=== PATIENT | female | born 1995 | race Caucasian/White ===

== ENCOUNTER 2016-12-26 17:10 | Inpatient (IN) | payer MEDICAID, OTHER ==
[2016-12-26] MEDS ORDERED: Sodium Chloride 0.9% 1,000 ML IV STA (17:51)
[2016-12-26 18:09] LABS: ADD MANUAL DIFF? NO
[2016-12-26 18:16] LABS: URINE BILIRUBIN SMALL (NEGATIVE); URINE BLOOD LARGE (NEGATIVE); URINE GLUCOSE (UA) NEGATIVE (NEGATIVE); URINE KETONE TRACE mg/dL (NEGATIVE); URINE LEUKOCYTE ESTERASE TRACE Leu/uL (NEGATIVE); URINE PROTEIN 100 mg/dL (<30 mg/dL); URINE UROBILINOGEN 0.2 E.U./dL (<1 E.U./dL)
--- NOTE | 2016-12-26 18:17 | ED PDOC ---
Arrival/HPI - General Chief Complaint: Abdominal Pain Time Seen by Provider: 12/26/16 17:16 Historian: Patient - History of Present Illness Narrative History of Present Illness (Text): 12/26/16 18:10 Saud Burrows is a 21 year old female who presents to the emergency department complaining of sudden onset diffuse abdominal pain associated with nausea and vomiting since 1:30 pm today afternoon. Describes pain as sharp, constant and non-radiating. Reports she had a subjective fever yesterday. Patient reports that she took an unknown medication given by her parents, but states she vomited immediately after. Informs she has not experienced pain of this quality before. Denies any chest pain, shortness of breath, diarrhea, constipation, urinary symptoms, or any other complaints. Time/Duration: Other (13:30 today ) Symptom Onset: Sudden Symptom Course: Unchanged Severity Level: Mild Activities at Onset: Light Past Medical History - Provider Review Nursing Documentation Reviewed: Yes - Infectious Disease Hx of Infectious Diseases: None - Psychiatric Hx Substance Use: No - Surgical History Other/Comment: right foot surgery - Anesthesia Hx Anesthesia: Yes Hx Anesthesia Reactions: No Hx Malignant Hyperthermia: No Family/Social History - Physician Review Nursing Documentation Reviewed: Yes Family/Social History: No Known Family HX Smoking Status: Never Smoked Hx Alcohol Use: No Hx Substance Use: No Allergies/Home Meds Allergies/Adverse Reactions: Allergies pcn Adverse Reaction (Uncoded 12/26/16 17:23) RASH Home Medications: Home Meds Medication Instructions Recorded Confirmed No Known Home Med 12/26/16 12/26/16 Review of Systems - Physician Review All systems were reviewed & negative as marked: Yes - Review of Systems Constitutional: Fevers. absent: Fatigue Respiratory: Cough (x 1 month). absent: SOB, Sputum, Wheezing Gastrointestinal: Abdominal Pain, Nausea, Vomiting. absent: Constipation, Diarrhea Genitourinary Female: Normal Neurological: Normal. absent: Headache, Dizziness Psychiatric: Normal Physical Exam Vital Signs Reviewed: Yes Vital Signs Temp Pulse Resp BP Pulse Ox 12/26/16 20:13 81 18 111/65 98 12/26/16 17:19 98.4 F 101 H 20 115/73 99 Temperature: Afebrile Blood Pressure: Normal Pulse: Tachycardic Respiratory Rate: Normal Appearance: Positive for: Well-Appearing, Non-Toxic, Comfortable Pain Distress: None Mental Status: Positive for: Alert and Oriented X 3 - Systems Exam Head: Present: Atraumatic, Normocephalic Pupils: Present: PERRL Conjunctiva: Present: Normal Respiratory/Chest: Present: Clear to Auscultation, Good Air Exchange. No: Respiratory Distress, Accessory Muscle Use Cardiovascular: Present: Regular Rate and Rhythm, Normal S1, S2. No: Murmurs Abdomen: Present: Tenderness (Diffuse abdominal pain with voluntary guarding ), Normal Bowel Sounds, Guarding. No: Distention, Peritoneal Signs, Rebound Back: Present: Normal Inspection. No: CVA Tenderness, Midline Tenderness, Paraspinal Tenderness Upper Extremity: Present: Normal Inspection. No: Cyanosis, Edema Lower Extremity: Present: Normal Inspection. No: Edema Neurological: Present: GCS=15, Speech Normal, Motor Func Grossly Intact Skin: Present: Warm, Dry, Normal Color. No: Rashes Psychiatric: Present: Alert, Oriented x 3 Medical Decision Making ED Course and Treatment: 12/26/16 18:54 Patient is nontoxic well appearing with stable vital signs presenting with severe diffuse abdominal pain. + n/v. CBC wbc;21.4 CMP wnl Amylase wnl Lipase wnl Urinalysis trace leukocytes, + blood CAT scan FINDINGS: LIMITATIONS: Mild streak/motion artifact. LOWER THORAX: Patchy areas of consolidation in the lung bases bilaterally, highly suspicious for a patchy, bi-basilar pneumonia. Followup is recommended to document clearing. ABDOMEN: LIVER: Diffuse fatty infiltration of the liver. Mild hepatomegaly. GALLBLADDER AND BILE DUCTS: No CT evidence of acute cholecystitis. No evidence of significant biliary ductal dilatation. PANCREAS: No CT evidence of acute pancreatitis. SPLEEN: No acute abnormality of the spleen identified. ADRENALS: No acute abnormality of the adrenal glands identified. KIDNEYS AND URETERS: No acute abnormality of the kidneys identified. No evidence of significant hydrouereteronephrosis. STOMACH AND BOWEL: Colon is incompletely distended, which limits evaluation for wall thickening. Otherwise, no significant abnormality of the bowel is identified. No evidence of bowel obstruction. APPENDIX: Normal appendix is not seen, however, there are no significant inflammatory changes visualized in the expected location of the appendix to suggest appendicitis. Recommend clinical correlation. PELVIS: BLADDER: Mild thickening of the bladder wall. REPRODUCTIVE: Bilateral ovarian/adnexal cystic lesions seen, the larger, on the left measuring [address] densities suggestive of simple fluid, i.e.,simple cystic lesions. No followup is warranted based on the imaging findings, unless otherwise clinically indicated. No acute abnormality of the uterus identified. ABDOMEN and PELVIS: INTRAPERITONEAL SPACE: No evidence of free intraperitoneal air or fluid. BONES/JOINTS: No acute fractures or other acute bony abnormality noted. SOFT TISSUES: No acute abnormality of the visualized soft tissues is seen. VASCULATURE: No evidence of abdominal aortic aneurysm. No evidence of periaortic hemorrhage. LYMPH NODES: No evidence of diffuse lymphadenopathy. IMPRESSION: - Finding suspicious for bibasilar infiltrates/pneumonia. Please see above for a full description. - Mild bladder wall thickening. This is a nonspecific finding, but can be seen with cystitis. Recommend clinical correlation. - Otherwise, no evidence of significant acute process. - See above for remaining findings. Patient reassessment: pt feeling better after toradol. vitals stable. blood cultures pending. levaquin started IV Discussed all results with patient in depth case discussed with resident dr. abreu. case discussed with dr. ocampo will admit patient to med/surg for pneumonia, cystitis, abdominal pain Impression: Bilateral pneumonia, cystitis, abdominal pain, leukocytosis admit to med/surg - Lab Interpretations Lab Results: 12/26/16 18:00 12/26/16 18:00 Lab Results 12/26/16 18:00: WBC 21.4 H, RBC 4.70, Hgb 12.4, Hct 36.5, MCV 77.7 L, MCH 26.4, MCHC 34.0, RDW 14.9 H, Plt Count 79 L, MPV 10.7, Gran % 83.8 H, Lymph % (Auto) 11.7 L, Bremer % (Auto) 4.3, Eos % (Auto) 0.1 L, Baso % (Auto) 0.1, Gran # 17.89 H , Lymph # 2.5, Bremer # 0.9 H, Eos # 0.0, Baso # 0.03 12/26/16 18:00: Sodium 137, Potassium 3.9, Chloride 102, Carbon Dioxide 21, Anion Gap 18, BUN 8, Creatinine 0.6, Est GFR ( Amer) > 60, Est GFR (Non- Af Amer) > 60, Random Glucose 123 H, Calcium 9.5, Total Bilirubin 0.8, AST 28, ALT 31, Alkaline Phosphatase 94, Total Protein 9.0 H, Albumin 4.6, Globulin 4.4 , Albumin/Globulin Ratio 1.0 L, Amylase 88, Lipase 24 12/26/16 18:00: Urine Color Yellow, Urine Appearance Sl cloudy, Urine pH 6.0, Ur Specific Anderson 1.025, Urine Protein 100 H, Urine Glucose (UA) Negative, Urine Ketones Trace H, Urine Blood Large H, Urine Nitrate Negative, Urine Bilirubin Small H, Urine Urobilinogen 0.2, Ur Leukocyte Esterase Trace H, Urine RBC 5 - 10, Urine WBC 0 - 2, Ur Epithelial Cells 1 - 3, Urine Bacteria Large - RAD Interpretation Radiology Orders: 12/26/16 17:55 ABD & PELVIS IV CONTRAST ONLY [CT] Stat CHEST PORTABLE [RAD] Stat - Medication Orders Current Medication Orders: Albuterol Sulfate (Albuterol 0.083% Inhal Corrina (2.5 Mg/3 Ml) Ud) 15.1 mg 0.15 mg /kg (15.1 mg) INH Q4 PRN PRN Reason: Cough and congestion Sodium Chloride (Sodium Chloride 0.9%) 1,000 mls @ 100 mls/hr IV .Q10H SHERRY Levofloxacin/Dextrose (Levaquin 750mg) 750 mg in 150 mls @ 100 mls/hr IVPB DAILY SHERRY Vancomycin HCl (Vancomycin 1gm) 1 gm in 250 mls @ 167 mls/hr IVPB STAT STA PRN Reason: Protocol Stop: 12/26/16 23:35 Aztreonam (Azactam 1 Gm) 100 mls @ 100 mls/hr IVPB STAT STA PRN Reason: Protocol Stop: 12/26/16 23:09 Pantoprazole Sodium (Protonix Inj) 40 mg IVP DAILY SHERRY Discontinued Medications Sodium Chloride (Sodium Chloride 0.9%) 1,000 mls @ 999 mls/hr IV .Q1H1M STA Stop: 12/26/16 18:51 Last Admin: 12/26/16 18:09 Dose: 999 mls/hr Iohexol (Omnipaque 350 100 Ml) Confirm Administered Dose 350 mg .ROUTE .STK-MED ONE Stop: 12/26/16 19:05 Ketorolac Tromethamine (Toradol) 30 mg IVP STAT STA Stop: 12/26/16 17:52 Last Admin: 12/26/16 18:10 Dose: 30 mg Re-Assess: MAR Pain Assessment Document 12/26/16 19:10 GMD (Rec: 12/26/16 19:34 [place] [facility] [id number] Pain Reassessment Is this a pain reassessment? No Sleep Is patient sleeping during reassessment? No Presence of Pain Presence of Pain Yes Pain Scale Used Pain Scale Used Numeric Description Intensity of Pain at present 1 Levofloxacin/Dextrose (Levaquin 750mg) 750 mg IVPB STAT STA Stop: 12/26/16 20:31 Last Admin: 12/26/16 20:50 Dose: 750 mg Ondansetron HCl (Zofran Inj) 4 mg IVP STAT STA Stop: 12/26/16 17:56 Last Admin: 12/26/16 18:11 Dose: 4 mg Disposition/Present on Arrival - Present on Arrival Any Indicators Present on Arrival: No History of DVT/PE: No History of Uncontrolled Diabetes: No Urinary Catheter: No History of Decub. Ulcer: No History Surgical Site Infection Following: None - Disposition Have Diagnosis and Disposition been Completed?: Yes Diagnosis: Pneumonia, Leukocytosis, Abdominal pain Disposition: HOSPITALIZED Disposition Time: 20:55 Patient Plan: Admission Patient Problems: Current Active Problems Problem Status Onset Abdominal pain Acute Leukocytosis Acute Pneumonia Acute Condition: FAIR
[2016-12-26 18:18] LABS: BASO # 0.03 K/mm3 (0.0-2.0); BASO % 0.1 % (0.0-3.0); EOS % 0.1 % (1.5-5.0); GRAN # 17.89 (1.4-6.5); GRAN % 83.8 % (50.0-68.0); HEMATOCRIT 36.5 % (36.0-48.0); LYMPH # 2.5 (1.2-3.4); LYMPH % 11.7 % (22.0-35.0); MEAN CELL VOLUME 77.7 fL (80.0-105.0); MEAN CORPUSCULAR HEMOGLOBIN 26.4 pg (25.0-35.0); MEAN PLATELET VOLUME 10.7 fl (7.0-11.0); MONO # 0.9 (0.1-0.6); MONO % 4.3 % (1.0-6.0); PLATELET COUNT 79 10^3/uL (120.0-450.0); RED CELL DISTRIBUTION WIDTH 14.9 % (11.5-14.5); WHITE BLOOD COUNT 21.4 10^3/ul (4.5-11.0)
[2016-12-26 18:19] LABS: URINE APPEARANCE SL CLOUDY (CLEAR); URINE COLOR YELLOW (YELLOW)
[2016-12-26 18:33] LABS: ALKALINE PHOSPHATASE 94 U/L (38-133); ALT/SGPT 31 U/L (7-56); AMYLASE 88 U/L (35-125); AST/SGOT 28 U/L (15-39); BILIRUBIN,TOTAL 0.8 mg/dL (0.2-1.3); BLOOD UREA NITROGEN 8 mg/dL (7-21); CALCIUM 9.5 mg/dL (8.4-10.5); CARBON DIOXIDE 21 mmol/L (21-33); CHLORIDE 102 mmol/L (98-107); GFR AFRICAN-AMERICAN > 60; GLUCOSE,RANDOM 123 mg/dL (70-110); LIPASE 24 U/L (23-300); POTASSIUM 3.9 mmol/L (3.6-5.0); SODIUM 137 mmol/L (132-148)
[2016-12-26] MEDS ORDERED: Iohexol 350 MG/100 ML VIAL ONE (19:04)
[2016-12-26 19:28] LABS: URINE BACTERIA LARGE (NEG); URINE WBC 0 - 2 /hpf (0-6)
--- NOTE | 2016-12-26 20:12 | CT ---
EXAM: CT Abdomen and Pelvis With Intravenous Contrast CLINICAL HISTORY: 21 years old, female; Pain; Abdominal pain; Generalized; Additional info: Abd pain TECHNIQUE: Axial computed tomography images of the abdomen and pelvis with intravenous contrast. This CT exam was performed using one or more of the following dose reduction techniques: automated exposure control, adjustment of the mA and/or kV according to patient size, and/or use of iterative reconstruction technique. Coronal and sagittal reformatted images were created and reviewed. CONTRAST: 96 mL of [id number] administered intravenously. EXAM DATE/TIME: 12/26/2016 5:55 PM COMPARISON: No relevant prior studies available. FINDINGS: LIMITATIONS: Mild streak/motion artifact. LOWER THORAX: Patchy areas of consolidation in the lung bases bilaterally, highly suspicious for a patchy, bi-basilar pneumonia. Followup is recommended to document clearing. ABDOMEN: LIVER: Diffuse fatty infiltration of the liver. Mild hepatomegaly. GALLBLADDER AND BILE DUCTS: No CT evidence of acute cholecystitis. No evidence of significant biliary ductal dilatation. PANCREAS: No CT evidence of acute pancreatitis. SPLEEN: No acute abnormality of the spleen identified. ADRENALS: No acute abnormality of the adrenal glands identified. KIDNEYS AND URETERS: No acute abnormality of the kidneys identified. No evidence of significant hydrouereteronephrosis. STOMACH AND BOWEL: Colon is incompletely distended, which limits evaluation for wall thickening. Otherwise, no significant abnormality of the bowel is identified. No evidence of bowel obstruction. APPENDIX: Normal appendix is not seen, however, there are no significant inflammatory changes visualized in the expected location of the appendix to suggest appendicitis. Recommend clinical correlation. PELVIS: BLADDER: Mild thickening of the bladder wall. REPRODUCTIVE: Bilateral ovarian/adnexal cystic lesions seen, the larger, on the left measuring [address] densities suggestive of simple fluid, i.e.,simple cystic lesions. No followup is warranted based on the imaging findings, unless otherwise clinically indicated. No acute abnormality of the uterus identified. ABDOMEN and PELVIS: INTRAPERITONEAL SPACE: No evidence of free intraperitoneal air or fluid. BONES/JOINTS: No acute fractures or other acute bony abnormality noted. SOFT TISSUES: No acute abnormality of the visualized soft tissues is seen. VASCULATURE: No evidence of abdominal aortic aneurysm. No evidence of periaortic hemorrhage. LYMPH NODES: No evidence of diffuse lymphadenopathy. IMPRESSION: - Finding suspicious for bibasilar infiltrates/pneumonia. Please see above for a full description. - Mild bladder wall thickening. This is a nonspecific finding, but can be seen with cystitis. Recommend clinical correlation. - Otherwise, no evidence of significant acute process. - See above for remaining findings.
[2016-12-26] MEDS ORDERED: levoFLOXacin 750 mg in D5W 150 ML BAG IVPB STA (20:30)
[2016-12-26] MEDS ORDERED: Sodium Chloride 0.9% 1,000 ML IV SCH (22:00)
[2016-12-26] MEDS ORDERED: Vancomycin 1gm in NS 250ml 1 GM/250 ML BAG IVPB STA (22:06)
[2016-12-26] MEDS ORDERED: Aztreonam 1 Gm in NS 100mL 100 ML IVPB STA (22:10)
[2016-12-26] MEDS ORDERED: Albuterol 0.083% Inhal Sol (2.5 mg/3 mL) UD INH PRN (22:11)
[2016-12-27 01:02] VITALS: RESP 20; BMI 32.5
--- NOTE | 2016-12-27 02:28 | CP.PCM.HP ---
History of Present Illness - History of Present Illness History of Present Illness: CC: Abdominal Pain/one week cough and congestion HPI: Ms. Burrows is a 21 year old female who presented with sudden onset diffuse abdominal pain associated with nausea and vomiting since 1330 this afternoon. She describes the pain as sharp, constant and non-radiating. She reports she had a subjective fever yesterday. She states that she has had 3 episodes of NBNB vomiting since yesterday. She also reports one week of a cough productive of yellow phlegm and general chest congestion that she believed to be the flu and unrelated to her chief complaint. A CT abd/pelv in the ED showed bibasilar infiltrates/pneumonia bilaterally as well as mild bladder wall thickening. She denies any headache, dizziness, chest pain, shortness of breath , diarrhea, constipation, any urinary symptoms, or any other complaints at this time. PMH: None PSH: None Family History: Non-contributory Social History: Denies tobacco, alcohol or illicit drug use Allergies: Penicillin Home Meds: None Present on Admission - Present on Admission Any Indicators Present on Admission: No Review of Systems - Review of Systems Review of Systems: Please refer to HPI Past Patient History - Infectious Disease Hx of Infectious Diseases: None - Past Social History Smoking Status: Never Smoked - CARDIAC Hx Cardiac Disorders: No Hx Angina: No Hx Cardia Arrhythmia: No Hx Circulatory Problems: No Hx Congestive Heart Failure: No Hx Heart Murmur: No Hx Heart Transplant: No Hx Hypercholesterolemia: No Hx Hypertension: No Hx Internal Defibrillator: No Hx Mitral Valve Prolapse: No Hx Pacemaker: No Hx Peripheral Edema: No Hx Peripheral Vascular Disease: No - PULMONARY Hx Respiratory Disorders: No Hx Asthma: No Hx Bronchitis: No Hx Chronic Obstructive Pulmonary Disease (COPD): No Hx Emphysema: No Hx Pneumonia: No Hx Respiratory Aspiration: No Hx Respiratory Tract Infection: No Hx Sleep Apnea: No Hx Tuberculosis: No - NEUROLOGICAL Hx Neurological Disorder: No Hx Alzheimer's Disease: No HX Cerebrovascular Accident: No Hx Dementia: No Hx Dizziness: No Hx Meningitis: No Hx Migraine: No Hx Parkinson's Disease: No Hx Seizures: No Hx Transient Ischemic Attacks (TIA): No - HEENT Hx HEENT Problems: No Hx Blind: No Hx Cataracts: No Hx Deafness: No Hx Difficulty Chewing: No Hx Epistaxis: No Hx Glaucoma: No Hx Macular Degeneration: No - RENAL Hx Chronic Kidney Disease: No Hx Dialysis: No Hx Kidney Stones: No Hx Neurogenic Bladder: No Hx Pyelonephritis: No Hx Renal (Kidney) Cancer: No Hx Renal Failure: No - ENDOCRINE/METABOLIC Hx Endocrine Disorders: No Hx Adrenal Cancer: No Hx Diabetes Insipidus: No Hx Diabetes Mellitus Type 1: No Hx Diabetes Mellitus Type 2: No Hx Hyperthyroidism: No Hx Hypothyroidism: No Hx Systemic Lupus Erythematosus: No - HEMATOLOGICAL/ONCOLOGICAL Hx Blood Disorders: No Hx AIDS: No Hx Cancer: No Hx Chemotherapy: No Hx Cirrhosis: No Hx Hemophilia: No Hx Hepatitis A: No Hx Hepatitis B: No Hx Hepatitis C: No Hx Human Immunodeficiency Virus (HIV): No Hx Metastesis: No Hx Shingles: No Hx Sickle Cell Disease: No Hx Unexplained Bleeding: No - INTEGUMENTARY Hx Dermatological Problems: No Hx Basil Cell: No Hx Eczema: No Hx Melanoma: No Hx Psoriasis: No Hx Squamous Cell: No - MUSCULOSKELETAL/RHEUMATOLOGICAL Hx Falls: No - GENITOURINARY/GYNECOLOGICAL Hx Genitourinary Disorders: No Hx Hematuria: No Hx Incontinence: No Hx Sexually Transmitted Disorders: No Hx Urinary Tract Infection: No - PSYCHIATRIC Hx Substance Use: No - SURGICAL HISTORY Hx Cardiac Catheterization: No Hx Coronary Stent: No - ANESTHESIA Hx Anesthesia: Yes Hx Anesthesia Reactions: No Hx Malignant Hyperthermia: No Meds Allergies/Adverse Reactions: Allergies Allergy/AdvReac Type Severity Reaction Status Date / Time pcn AdvReac RASH Uncoded 12/26/16 17:23 Physical Exam - Constitutional Appears: No Acute Distress - Head Exam Head Exam: NORMAL INSPECTION, NORMOCEPHALIC - Eye Exam Eye Exam: EOMI, Normal appearance - ENT Exam ENT Exam: Mucous Membranes Moist, Normal Exam - Neck Exam Neck exam: Positive for: Full Rom. Negative for: Lymphadenopathy - Respiratory Exam Respiratory Exam: Clear to Auscultation Bilateral, NORMAL BREATHING PATTERN. absent: Rales, Rhonchi, Wheezes, Respiratory Distress, Stridor - Cardiovascular Exam Cardiovascular Exam: REGULAR RHYTHM, RRR, +S1, +S2. absent: Bradycardia, Tachycardia, Diastolic murmur, Systolic Murmur - GI/Abdominal Exam GI & Abdominal Exam: Normal Bowel Sounds. absent: Distended, Firm, Tenderness - Extremities Exam Extremities exam: Positive for: normal capillary refill, pedal pulses present. Negative for: calf tenderness, pedal edema - Neurological Exam Neurological exam: Alert, Normal Gait, Oriented x3 - Psychiatric Exam Psychiatric exam: Normal Affect, Normal Mood - Skin Skin Exam: Dry, Intact, Normal Color, Warm Results - Vital Signs Recent Vital Signs: Last Vital Signs Temp 98.5 F 12/26/16 23:56 Pulse 78 12/26/16 23:56 Resp 20 12/27/16 00:25 BP 115/68 12/26/16 23:56 Pulse Ox 99 12/26/16 23:56 - Labs Result Diagrams: 12/26/16 18:00 12/26/16 18:00 Assessment & Plan - Assessment and Plan (Free Text) Assessment: Ms. Burrows is a 21 year old female who presented with sudden onset diffuse abdominal pain associated with nausea and vomiting. Pneumonia found on CT abd/ pelvis in ED. Plan: 1. Diffuse Abdominal Pain -CT abd/pelv showed no acute GI process -patient currently asymptomatic -zofran PRN -toradol/tylenol for pain control -will cont to monitor 2. Bilateral Bibasilar Pneumonia/ CAP -CURB-65 score: 0 -see CT abd/pelv report -CXR report pending -started on levaquin empirically; given one dose of vanc and aztreonam -IVF: NS at 100mls/hr -duonebs PRN -WBC: 21.4 on admission, afebrile throughout, normotensive, non-tachy -blood cultures pending 3. GI/DVT Prophylaxis -protonix/scd's Patient seen and case discussed with attending, Dr. Yun. - Date & Time Date: 12/27/16 Time: 02:29
[2016-12-27 07:33] LABS: ADD MANUAL DIFF? NO
[2016-12-27 07:38] LABS: BASO # 0.03 K/mm3 (0.0-2.0); BASO % 0.2 % (0.0-3.0); EOS # 0.2 (0.0-0.7); EOS % 1.2 % (1.5-5.0); GRAN # 10.48 (1.4-6.5); GRAN % 70.1 % (50.0-68.0); HEMATOCRIT 34.9 % (36.0-48.0); LYMPH # 3.4 (1.2-3.4); LYMPH % 22.9 % (22.0-35.0); MEAN CELL VOLUME 77.2 fL (80.0-105.0); MEAN CORPUSCULAR HEMOGLOBIN 25.2 pg (25.0-35.0); MEAN CORPUSCULAR HGB CONC 32.7 g/dl (31.0-37.0); MONO # 0.8 (0.1-0.6); MONO % 5.6 % (1.0-6.0); RED CELL DISTRIBUTION WIDTH 15.1 % (11.5-14.5)
[2016-12-27 07:47] LABS: ALKALINE PHOSPHATASE 82 U/L (38-133); ALT/SGPT 22 U/L (7-56); AST/SGOT 28 U/L (15-39); BILIRUBIN,TOTAL 0.7 mg/dL (0.2-1.3); BLOOD UREA NITROGEN 9 mg/dL (7-21); CALCIUM 8.9 mg/dL (8.4-10.5); CARBON DIOXIDE 25 mmol/L (21-33); CHLORIDE 107 mmol/L (95-110); GFR AFRICAN-AMERICAN > 60; GLUCOSE,RANDOM 84 mg/dL (70-110); SODIUM 141 mmol/L (132-148); TOTAL PROTEIN 7.8 g/dL (5.8-8.3)
--- NOTE | 2016-12-27 09:29 | RAD ---
HISTORY: Abdominal pain. COMPARISON: No prior. FINDINGS: LUNGS: No active pulmonary disease. PLEURA: No significant pleural effusion identified, no pneumothorax apparent. CARDIOVASCULAR: Normal. OSSEOUS STRUCTURES: No significant abnormalities. VISUALIZED UPPER ABDOMEN: Normal. OTHER FINDINGS: None. IMPRESSION: No active disease.
[2016-12-27] MEDS: levoFLOXacin 750 mg in D5W 750 MG/150 ML BAG IVPB SCH (09:34)
[2016-12-27 10:31] LABS: PLATELET COUNT 241 10^3/uL (120.0-450.0)
[2016-12-28 07:03] VITALS: BP 114/73; O2SAT 98
[2016-12-28 08:05] LABS: ALKALINE PHOSPHATASE 76 U/L (38-133); ALT/SGPT 20 U/L (7-56); AST/SGOT 25 U/L (15-39); BILIRUBIN,TOTAL 0.4 mg/dL (0.2-1.3); BLOOD UREA NITROGEN 9 mg/dL (7-21); CALCIUM 8.6 mg/dL (8.4-10.5); CARBON DIOXIDE 23 mmol/L (21-33); CHLORIDE 107 mmol/L (95-110); GFR AFRICAN-AMERICAN > 60; GLUCOSE,RANDOM 93 mg/dL (70-110); POTASSIUM 4.3 mmol/L (3.6-5.0); SODIUM 142 mmol/L (132-148); TOTAL PROTEIN 7.2 g/dL (5.8-8.3)
[2016-12-28 08:12] VITALS: PULSE 78; TEMP 98
[2016-12-28 09:25] LABS: ADD MANUAL DIFF? NO
[2016-12-28 09:27] LABS: BASO # 0.05 K/mm3 (0.0-2.0); BASO % 0.5 % (0.0-3.0); EOS # 0.4 (0.0-0.7); EOS % 3.5 % (1.5-5.0); GRAN # 5.22 (1.4-6.5); GRAN % 52.7 % (50.0-68.0); HEMATOCRIT 32.7 % (36.0-48.0); LYMPH # 3.7 (1.2-3.4); LYMPH % 37.5 % (22.0-35.0); MEAN CELL VOLUME 80.5 fL (80.0-105.0); MEAN CORPUSCULAR HEMOGLOBIN 26.4 pg (25.0-35.0); MEAN CORPUSCULAR HGB CONC 32.7 g/dl (31.0-37.0); MEAN PLATELET VOLUME 11.1 fl (7.0-11.0); MONO # 0.6 (0.1-0.6); MONO % 5.8 % (1.0-6.0); RED CELL DISTRIBUTION WIDTH 14.9 % (11.5-14.5); WHITE BLOOD COUNT 9.9 10^3/ul (4.5-11.0)
[2016-12-28 09:45] LABS: PLATELET COUNT 253 10^3/uL (120.0-450.0)
[2016-12-28] MEDS: levoFLOXacin 750 mg in D5W 750 MG/150 ML BAG IVPB SCH (09:51)
--- NOTE | 2016-12-28 16:21 | CP.PCM.DIS ---
<Rosenda Ramirez - Last Filed: 12/28/16 16:32> Provider - Provider Date of Admission: 12/26/16 20:55 Attending physician: Jose Thompson MD Primary care physician: Jami Rawls MD Time Spent in preparation of Discharge (in minutes): 45 Diagnosis - Discharge Diagnosis (1) Abdominal pain Status: Acute (2) Leukocytosis Status: Acute (3) Pneumonia Status: Acute Hospital Course - Lab Results Lab Results: Most Recent Lab Values WBC 9.9 10^3/ul (4.5-11.0) D 12/28/16 09:00 RBC 4.06 10^6/uL (3.5-6.1) 12/28/16 09:00 Hgb 10.7 gm/dL (12.0-16.0) L 12/28/16 09:00 Hct 32.7 % (36.0-48.0) L 12/28/16 09:00 MCV 80.5 fL (80.0-105.0) 12/28/16 09:00 MCH 26.4 pg (25.0-35.0) 12/28/16 09:00 MCHC 32.7 g/dl (31.0-37.0) 12/28/16 09:00 RDW 14.9 % (11.5-14.5) H 12/28/16 09:00 Plt Count 253 10^3/uL (120.0-450.0) 12/28/16 09:00 MPV 11.1 fl (7.0-11.0) H 12/28/16 09:00 Gran % 52.7 % (50.0-68.0) 12/28/16 09:00 Lymph % (Auto) 37.5 % (22.0-35.0) H 12/28/16 09:00 [place] % (Auto) 5.8 % (1.0-6.0) 12/28/16 09:00 Eos % (Auto) 3.5 % (1.5-5.0) 12/28/16 09:00 Baso % (Auto) 0.5 % (0.0-3.0) 12/28/16 09:00 Gran # 5.22 (1.4-6.5) 12/28/16 09:00 Lymph # 3.7 (1.2-3.4) H 12/28/16 09:00 [place] # 0.6 (0.1-0.6) 12/28/16 09:00 Eos # 0.4 (0.0-0.7) 12/28/16 09:00 Baso # 0.05 K/mm3 (0.0-2.0) 12/28/16 09:00 Sodium 142 mmol/L (132-148) 12/28/16 07:10 Potassium 4.3 mmol/L (3.6-5.0) 12/28/16 07:10 Chloride 107 mmol/L (95-110) 12/28/16 07:10 Carbon Dioxide 23 mmol/L (21-33) 12/28/16 07:10 Anion Gap 16 (10-20) 12/28/16 07:10 BUN 9 mg/dL (7-21) 12/28/16 07:10 Creatinine 0.5 mg/dL (0.5-1.4) 12/28/16 07:10 Est GFR ( Amer) > 60 12/28/16 07:10 Est GFR (Non-Af Amer) > 60 12/28/16 07:10 POC Glucose (mg/dL) 115 mg/dL (65-110) H 12/28/16 11:29 Random Glucose 93 mg/dL (70-110) 12/28/16 07:10 Calcium 8.6 mg/dL (8.4-10.5) 12/28/16 07:10 Total Bilirubin 0.4 mg/dL (0.2-1.3) 12/28/16 07:10 AST 25 U/L (15-39) 12/28/16 07:10 ALT 20 U/L (7-56) 12/28/16 07:10 Alkaline Phosphatase 76 U/L (38-133) 12/28/16 07:10 Total Protein 7.2 g/dL (5.8-8.3) 12/28/16 07:10 Albumin 3.7 g/dL (3.0-4.8) 12/28/16 07:10 Globulin 3.5 gm/dL 12/28/16 07:10 Albumin/Globulin Ratio 1.0 (1.1-1.8) L 12/28/16 07:10 Amylase 88 U/L (35-125) 12/26/16 18:00 Lipase 24 U/L (23-300) 12/26/16 18:00 Urine Color Yellow (YELLOW) 12/26/16 18:00 Urine Appearance Sl cloudy (CLEAR) 12/26/16 18:00 Urine pH 6.0 (4.7-8.0) 12/26/16 18:00 Ur Specific [place] 1.025 (1.005-1.035) 12/26/16 18:00 Urine Protein 100 mg/dL (<30 mg/dL) H 12/26/16 18:00 Urine Glucose (UA) Negative mg/dL (NEGATIVE) 12/26/16 18:00 Urine Ketones Trace mg/dL (NEGATIVE) H 12/26/16 18:00 Urine Blood Large (NEGATIVE) H 12/26/16 18:00 Urine Nitrate Negative (NEGATIVE) 12/26/16 18:00 Urine Bilirubin Small (NEGATIVE) H 12/26/16 18:00 Urine Urobilinogen 0.2 E.U./dL (<1 E.U./dL) 12/26/16 18:00 Ur Leukocyte Esterase Trace Rosie/uL (NEGATIVE) H 12/26/16 18:00 Urine RBC 5 - 10 /hpf (0-2) 12/26/16 18:00 Urine WBC 0 - 2 /hpf (0-6) 12/26/16 18:00 Ur Epithelial Cells 1 - 3 /hpf (0-5) 12/26/16 18:00 Urine Bacteria Large (NEG) 12/26/16 18:00 - Hospital Course Hospital Course: 21 year old female with no significant pmhx presented with sudden onset diffuse abdominal pain associated with nausea and vomiting since 1330 this afternoon. She describes the pain as sharp, constant and non-radiating. She reports she had a subjective fever yesterday. She states that she has had 3 episodes of NBNB vomiting since yesterday. She also reports one week of a cough productive of yellow phlegm and general chest congestion that she believed to be the flu and unrelated to her chief complaint. A CT abd/pelv in the ED showed bibasilar infiltrates/pneumonia bilaterally as well as mild bladder wall thickening. Patient was admitted for community acquired pneumonia. Patient was started on Levaquin. Blood work on admission showed leukocytosis at 21.4 and thrombocytopenia with platelet count of 79. On subsequent CBCs, platelets were WNL and Leukocytosis resolved. Diet was slowly advanced as tolerated. Blood cx and Urine cx was negative during this admission. On day of discharge, patient was doing well, tolerating diet, and had no complaints. Patient was medically stable prior to discharge. Patient was given prescription for Levaquin PO x 7 days and instructed to follow up with PMD within 1 week. Patient was extensively counseled on the importance of avoiding aggressive exercise while on levaquin and up to 1 week after completion of antibiotic course. Patient verbalized understanding, all questions and concerns were addressed. Discharge Exam - Head Exam Head Exam: NORMAL INSPECTION, NORMOCEPHALIC - Eye Exam Eye Exam: EOMI, Normal appearance Pupil Exam: NORMAL ACCOMODATION - ENT Exam ENT Exam: Mucous Membranes Moist - Neck Exam Neck exam: Full Rom - Respiratory Exam Respiratory Exam: Clear to PA & Lateral, NORMAL BREATHING PATTERN. absent: Rales, Rhonchi, Wheezes - Cardiovascular Exam Cardiovascular Exam: REGULAR RHYTHM, +S1, +S2 - GI/Abdominal Exam GI & Abdominal Exam: Normal Bowel Sounds, Soft. absent: Guarding, Rebound, Tenderness - Extremities Exam Extremities exam: normal capillary refill, pedal pulses present - Back Exam Back exam: NORMAL INSPECTION - Neurological Exam Neurological exam: Alert, Oriented x3 - Psychiatric Exam Psychiatric exam: Normal Affect, Normal Mood - Skin Skin Exam: Dry, Normal Color, Warm Discharge Plan - Discharge Medications Prescriptions: Levofloxacin [Levaquin] 500 mg PO DAILY #7 tablet - Follow Up Plan Condition: FAIR Disposition: HOME/ ROUTINE Instructions: Cigarette Smoking and Your Health (GEN), Acute Abdominal Pain (DC ), Acute Abdominal Pain (GEN), Leukocytosis (DC), Leukocytosis (GEN), Pneumonia (DC) Additional Instructions: Patient is clear for discharge home, Continue PO levaquin 500mg daily for 7 days , patient to follow up with PCP in 1 week. Can return to work on tuesday Referrals: Jami Rawls MD [Primary Care Provider] - <Jose Thompson - Last Filed: 12/28/16 18:05> Provider - Provider Date of Admission: 12/26/16 20:55 Attending physician: Jose Thompson MD Primary care physician: Jami Rawsl MD Hospital Course - Lab Results Lab Results: Most Recent Lab Values WBC 9.9 10^3/ul (4.5-11.0) D 12/28/16 09:00 RBC 4.06 10^6/uL (3.5-6.1) 12/28/16 09:00 Hgb 10.7 gm/dL (12.0-16.0) L 12/28/16 09:00 Hct 32.7 % (36.0-48.0) L 12/28/16 09:00 MCV 80.5 fL (80.0-105.0) 12/28/16 09:00 MCH 26.4 pg (25.0-35.0) 12/28/16 09:00 MCHC 32.7 g/dl (31.0-37.0) 12/28/16 09:00 RDW 14.9 % (11.5-14.5) H 12/28/16 09:00 Plt Count 253 10^3/uL (120.0-450.0) 12/28/16 09:00 MPV 11.1 fl (7.0-11.0) H 12/28/16 09:00 Gran % 52.7 % (50.0-68.0) 12/28/16 09:00 Lymph % (Auto) 37.5 % (22.0-35.0) H 12/28/16 09:00 [place] % (Auto) 5.8 % (1.0-6.0) 12/28/16 09:00 Eos % (Auto) 3.5 % (1.5-5.0) 12/28/16 09:00 Baso % (Auto) 0.5 % (0.0-3.0) 12/28/16 09:00 Gran # 5.22 (1.4-6.5) 12/28/16 09:00 Lymph # 3.7 (1.2-3.4) H 12/28/16 09:00 [place] # 0.6 (0.1-0.6) 12/28/16 09:00 Eos # 0.4 (0.0-0.7) 12/28/16 09:00 Baso # 0.05 K/mm3 (0.0-2.0) 12/28/16 09:00 Sodium 142 mmol/L (132-148) 12/28/16 07:10 Potassium 4.3 mmol/L (3.6-5.0) 12/28/16 07:10 Chloride 107 mmol/L (95-110) 12/28/16 07:10 Carbon Dioxide 23 mmol/L (21-33) 12/28/16 07:10 Anion Gap 16 (10-20) 12/28/16 07:10 BUN 9 mg/dL (7-21) 12/28/16 07:10 Creatinine 0.5 mg/dL (0.5-1.4) 12/28/16 07:10 Est GFR ( Amer) > 60 12/28/16 07:10 Est GFR (Non-Af Amer) > 60 12/28/16 07:10 POC Glucose (mg/dL) 115 mg/dL (65-110) H 12/28/16 11:29 Random Glucose 93 mg/dL (70-110) 12/28/16 07:10 Calcium 8.6 mg/dL (8.4-10.5) 12/28/16 07:10 Total Bilirubin 0.4 mg/dL (0.2-1.3) 12/28/16 07:10 AST 25 U/L (15-39) 12/28/16 07:10 ALT 20 U/L (7-56) 12/28/16 07:10 Alkaline Phosphatase 76 U/L (38-133) 12/28/16 07:10 Total Protein 7.2 g/dL (5.8-8.3) 12/28/16 07:10 Albumin 3.7 g/dL (3.0-4.8) 12/28/16 07:10 Globulin 3.5 gm/dL 12/28/16 07:10 Albumin/Globulin Ratio 1.0 (1.1-1.8) L 12/28/16 07:10 Amylase 88 U/L (35-125) 12/26/16 18:00 Lipase 24 U/L (23-300) 12/26/16 18:00 Urine Color Yellow (YELLOW) 12/26/16 18:00 Urine Appearance Sl cloudy (CLEAR) 12/26/16 18:00 Urine pH 6.0 (4.7-8.0) 12/26/16 18:00 Ur Specific [place] 1.025 (1.005-1.035) 12/26/16 18:00 Urine Protein 100 mg/dL (<30 mg/dL) H 12/26/16 18:00 Urine Glucose (UA) Negative mg/dL (NEGATIVE) 12/26/16 18:00 Urine Ketones Trace mg/dL (NEGATIVE) H 12/26/16 18:00 Urine Blood Large (NEGATIVE) H 12/26/16 18:00 Urine Nitrate Negative (NEGATIVE) 12/26/16 18:00 Urine Bilirubin Small (NEGATIVE) H 12/26/16 18:00 Urine Urobilinogen 0.2 E.U./dL (<1 E.U./dL) 12/26/16 18:00 Ur Leukocyte Esterase Trace Rosie/uL (NEGATIVE) H 12/26/16 18:00 Urine RBC 5 - 10 /hpf (0-2) 12/26/16 18:00 Urine WBC 0 - 2 /hpf (0-6) 12/26/16 18:00 Ur Epithelial Cells 1 - 3 /hpf (0-5) 12/26/16 18:00 Urine Bacteria Large (NEG) 12/26/16 18:00 Attending/Attestation - Attestation I have personally seen and examined this patient.: Yes I have fully participated in the care of the patient.: Yes I have reviewed all pertinent clinical information, including history, physical exam and plan: Yes Notes (Text): 12/28/16 18:01 21 year old female with no significant past medical history who presented with abdominal pain and cough. CT abd/pelvis showed bibasilar infiltrates and she had significant leukocytosis. She was started on levaquin. Possible side effects of levaquin were explained to patient including tendon rupture and avoidance of exercise or strenous exercise while on antibiotics. Her symptoms have improved. Leukocytosis also has resolved. She is discharged home to follow up with pmd. Continue with antibiotics as prescribed. Jose Thompson MD Hospitalist.
== END 2016-12-28 15:46 | disposition home or self-care (01) | DRG 195 ==
LOC: ED 17:10 → ERH 20:55 → 5RNO 12-27 00:14
PROVIDERS: ADMIT Internal Medicine; ATTEND Internal Medicine
DX: J18.9 Pneumonia, unspecified organism (principal); D69.6 Thrombocytopenia, unspecified; N30.90 Cystitis, unspecified without hematuria; D72.829 Elevated white blood cell count, unspecified; R10.9 Unspecified abdominal pain; Z88.0 Allergy status to penicillin; R40.2412 Glasgow coma scale score 13-15, at arrival to emergency department